=== PATIENT | female | born 1945 | race American Indian/Alaskan Native ===

== ENCOUNTER 2017-01-23 12:14 | Emergency (ER) | payer MEDICARE ==
[2017-01-23 14:43] LABS: Basophils % (Auto) 0.9 % (0.0-1.8); Eosinophils % (Auto) 6.4 % (0.0-4.3); Hematocrit 39.1 % (30.3-42.9); Hemoglobin 12.4 gm/dl (10.1-14.3); Mean Corpuscular HGB Conc 32 % (30-34); Mean Corpuscular Volume 81 fl (79-97); Platelet Count 289 K/mm3 (140-440); Red Blood Count 4.85 M/mm3 (3.65-5.03); Red Cell Distribution Width 16.7 % (13.2-15.2); White Blood Count 8.1 K/mm3 (4.5-11.0)
[2017-01-23 14:44] LABS: Mean Corpuscular Hemoglobin 26 pg (28-32)
[2017-01-23 14:52] LABS: Chloride 99.4 mmol/L (98-107); Potassium 3.8 mmol/L (3.6-5.0)
[2017-01-23 18:07] VITALS: BP 178/89
== END 2017-01-23 19:17 | disposition left against medical advice (07) ==
LOC: ED 12:14
DX: R10.9 Unspecified abdominal pain (principal); Z53.21 Procedure and treatment not carried out due to patient leaving prior to being seen by health care provider
CPT/HCPCS: 36415; 80048; 85025